=== PATIENT | male | born 1965 | race Caucasian/White ===

== ENCOUNTER 2023-06-27 17:17 | Emergency (ER) | payer OTHER, SELFPAY ==
[2023-06-27 17:18] VITALS: BMI 34.2
[2023-06-27 17:20] VITALS: BP 185/104
[2023-06-27 17:40] LABS: % Basophils 0.3 % (0-2); % Eosinophils 1.4 % (0-6); % Immature Granulocytes 0.3 % (0-0.5); % Lymphocytes 17.4 % (20.5-51.1); % Monocytes 8.5 % (1.7-9.3); % Neutrophils 72.1 % (42.2-75.2); Absolute Eosinophils 0.1 10^3/uL (0-0.7); Absolute Lymphocytes 1.5 10^3/uL (1.2-3.4); Absolute Monocytes 0.7 10^3/uL (0.1-0.6); Absolute Neutrophils 6.3 10^3/uL (1.4-6.5); Hematocrit 41.7 % (39.0-52.0); Hemoglobin 15.2 g/dL (13.0-18.0); Mean Corp Hgb Conc. 36.5 g/dL (33.0-37.0); Mean Corpuscular Hgb 30.5 pg (27.0-31.0); Mean Corpuscular Volume 83.6 fL (80.0-94.0); Mean Platelet Volume 9.5 fL (7.4-10.4); Nucleated Red Blood Cells % 0 % (-); Platelet Count 215 10^3/uL (130-400); Red Blood Cell Count 4.99 10^6/uL (4.70-6.10); White Blood Cell Count 8.7 10^3/uL (4.8-10.8)
[2023-06-27 17:51] LABS: INR 1.09; PT 14.2 Sec (11.4-14.6)
[2023-06-27 17:55] LABS: ALT (SGPT) 34 U/L (0-50); AST (SGOT) 32 U/L (17-59); Alkaline Phosphatase 120 U/L (38-126); Blood Urea Nitrogen 14 mg/dl (9-20); Calcium 9.4 mg/dl (8.4-10.2); Carbon Dioxide 23 mmol/L (22-30); Chloride 103 mmol/L (98-107); Glucose 134 mg/dl (70-99); Potassium 3.9 mmol/L (3.5-5.1); Sodium 132 mmol/L (135-145); Total Bilirubin 0.8 mg/dl (0.2-1.3); eGFR > 60.00
[2023-06-27 18:04] LABS: Troponin I < 0.012 ng/ml
[2023-06-27 20:00] VITALS: BP 135/92
--- NOTE | 2023-06-27 20:04 | ED.GENMED ---
History of Present Illness
General
Chief Complaint: Heart Rate Problem
Source: patient and records
Exam Limitations: none
Time Seen by Provider: 06/27/23 19:43
Nursing documentation reviewed up to this point in time: agreed with
Travel History
Have you had any contact with someone who has COVID-19?: No
Do you have any symptoms of coronavirus? Fever > 100 degrees, chills, cough, shortness of breath, sore throat, loss of taste or smell, muscle aches, or headache?: No
History of Present Illness
History of Present Illness:
58-year-old male CAD status post bypass surgery to follow with Dr. Lilly surgery Dr. Abdalla
Last week with swimming felt short of breath possibly passed out went to [facility] underwent cardiac catheterization which showed no blockage was discharged apparently had an arrhythmia prior to discharge was told to follow-up with his
hospitalist physician which she has not done yet, today had 2 episodes of fast heart rates with shortness of breath no syncope, no fevers, no history of DVT PE, no nausea or vomiting, states the symptoms are different than his prior angina requiring bypass
surgery 10 or 11 years ago
Past History
Past History
ED Past Medical History: HTN, Hypercholesterolemia, NIDDM and [place]
ED Past Surgical History: Cardiac and Other (Noncontributory)
Social History
Tobacco: Former smoker
Alcohol: None
Drug: None
Personal:
Living: with family
Employment: Employed
Family History
Family History: Other (Noncontributory); Negative CAD
Review of Systems
Review of Systems
All Other Systems: Not applicable
Constitutional: Denies fever or fatigue
Respiratory: Reports trouble breathing
Cardiac: Reports chest pain and palpitations
ABD/GI: Reports no symptoms
: Reports no symptoms
Musculoskeletal: Reports no symptoms
Phy Exam
Physical Exam
Physical Exam:
Physical Exam
General: no apparent distress, not acutely ill
Neck: No jaundice
Heart: Regular
Lungs: no acute respiratory distress. clear bilaterally
Abdomen: Nontender
Neuro: alert and oriented. no focal neurological deficits
Skin: no rash
Psychiatric: well kept. interactive and cooperative
Extremities: no edema. no calf tenderness.
Scores
Heart Score for Chest Pain Patients
STEMI patient?: No
History: Slightly or Non-Suspicious
ECG: Nonspecific Repolarization
Age: >45 - <65 years
Risk Factors: >/= 3 Risk Factors or History of CAD
Troponin: </= Normal Limit
Heart Score for Chest Pain Patients: 4
Heart Score Risk: 20.3% MACE over next 6 weeks
Course
Orders/Labs/Results
Orders:
Orders
06/27/23 17:19
Electrocardiogram (*1) Urgent
Reason for Study: Chest Pain
EKG- Treatment ONCE
06/27/23 17:33
Complete Blood Count/With Diff Urgent
Comprehensive Metabolic Panel Urgent
Magnesium Urgent
Comment: ADD ON
NT-proBNP Urgent
Comment: ADD ON
Protime/PTT Urgent
Troponin I Urgent
06/27/23 20:00
Add On- LAB Urgent
Tests Added?: magnesium, pBNP
CT Chest Pe Study Urgent
Comment:
Reason For Exam: cp
06/27/23 20:16
Troponin I Urgent
Abnormal Lab Results
06/27/23
17:33
Absolute Monos (auto) 0.7 H 10^3/uL
(0.1-0.6)
Lymphocytes % 17.4 L %
(20.5-51.1)
Sodium 132 L mmol/L
(135-145)
Glucose 134 H mg/dl
(70-99)
06/27/23 17:33
06/27/23 17:33
Vital Signs
Initial and Last Documented VS:
Initial Vital Signs
Temp Pulse Resp BP Pulse Ox
98.2 F 117 18 185/104 96
06/27/23 17:20 06/27/23 17:20 06/27/23 17:20 06/27/23 17:20 06/27/23 17:20
Last Documented Vital Signs
Temp Pulse Resp BP Pulse Ox
98.2 F 90 29 148/81 97
06/27/23 17:20 06/27/23 22:45 06/27/23 22:45 06/27/23 22:00 06/27/23 22:45
MDM/Problems Addressed
Differential Diagnosis Includes:
Arrhythmia PVCs conceivably PE, doubt ACS
MDM/Problems Addressed:
Palpitations chest pain shortness of
Chronic conditions affecting care: CAD
Acute Exacerbation and/or Progression of Chronic Illness: CAD
*Radiology
Radiology exam reviewed: radiology read reviewed
*Pulse Oximetry
Patient hypoxic: no
*EKG
Interpreted by ED Provider?: Yes
Interpretation: abnormal
Comparison EKG: no comparison EKG present
Heart Rate: 112
Rate: tachycardiac
Rhythm: sinus
Ischemia: non-specific ST changes
*Budget Specialist Interpretation
Rate: tachycardiac
Interpretation: abnormal
Heart Rate: 112
Rhythm: sinus
*Critical Care Note
Total Time (30-74mins, 75-104mins- exclusive of procedures): Not Applicable
Update Note
Update Note:
11 PM update labs noted troponin x [address] of the chest noted
Patient updated, he is feeling better, he has appointment already scheduled with nurse practitioner from his hospitalist physician on Saturday encouraged him to keep that appointment, he will limit his caffeine and take it easy through the weekend
ED Attending Note
-
Portions of this chart may have been created with voice recognition software.� Occasional wrong word or��sound alike� substitutions may have occurred due to the inherent limitations of voice recognition software.
Discharge Plan
Departure
Patient Disposition: Home (Routine Discharge)
Date of Disposition: 06/27/23
Time of Disposition: 23:17
Patient with high blood pressure during this ER visit?: No
Condition: Good
Covid-19: Not Applicable
Discharge Problem:
Heart palpitations
Instructions: Palpitations (DC)
Prescriptions:
No Action
aspirin 81 MG tablet,delayed release (DR/EC)
81 mg PO DAILY
pantoprazole 40 MG tablet,delayed release (DR/EC)
40 mg PO DAILY PRN (Reason: heart burn) Qty: 0 0RF
Rx Instructions:
Take daily for one month, then resume taking as needed
metformin 1,000 MG tablet
1,000 mg PO HS Qty: 30 2RF
Farxiga 10 MG tablet
10 mg PO HS Qty: 30 2RF
atorvastatin [Lipitor] 80 MG tablet
80 mg PO QPM Qty: 30 2RF
losartan-hydrochlorothiazide 50-12.5 mg Tablet
1 tab PO DAILY
nebivolol 10 mg Tablet
10 mg PO HS
oxycodone 5 mg tablet
5 - 10 mg PO Q4HPRN PRN (Reason: moderate to severe pain) Qty: 20 0RF
Referrals:
Theodore Cunningham DO [Family Provider] -
Interventions
Interventions:
*Risk Screen - Suicide Last Done: 06/27/23 17:20
*General Assessment Last Done: 06/27/23 17:20
*Neglect/Abuse Screening Last Done: 06/27/23 17:20
ED- Fall Risk Assessment Last Done: 06/27/23 21:58
*ED COVID-19 Vaccine History Last Done: 06/27/23 17:20
ED- Cardiac Assessment Last Done: 06/27/23 21:58
ED- Pulmonary Assessment Last Done: 06/27/23 21:58
Discharge Date and Time
Print Language: ROMANSH
[2023-06-27 20:46] LABS: NT-proBNP 38.3 pg/ml
[2023-06-27 21:00] VITALS: BP 137/87
[2023-06-27 22:00] VITALS: BP 148/81
== END 2023-06-27 23:54 | disposition home or self-care (01) ==
LOC: EMR 17:17
PROVIDERS: Emergency Medicine; EMERGENCY PHYSICIAN Emergency Medicine; FAMILY PHYSICIAN Family Medicine
DX: R00.2 Palpitations (principal); R06.02 Shortness of breath; I10 Essential (primary) hypertension; E78.00 Pure hypercholesterolemia, unspecified; E11.9 Type 2 diabetes mellitus without complications; I25.10 Atherosclerotic heart disease of native coronary artery without angina pectoris; Z79.84 Long term (current) use of oral hypoglycemic drugs; Z87.891 Personal history of nicotine dependence; Z95.1 Presence of aortocoronary bypass graft
CPT/HCPCS: 99284; 71275; 80053; 83735; 83880; 84484; 85025; 85610; 85730; 93005; Q9967

== ENCOUNTER 2024-05-24 18:38 | Emergency (ER) | payer OTHER, SELFPAY ==
[2024-05-24 18:56] VITALS: BP 138/97
[2024-05-24 19:23] LABS: % Basophils 0.2 % (0-2); % Eosinophils 1.9 % (0-6); % Immature Granulocytes 0.8 % (0-0.5); % Lymphocytes 14.2 % (20.5-51.1); % Monocytes 12.4 % (1.7-9.3); % Neutrophils 70.5 % (42.2-75.2); Absolute Eosinophils 0.2 10^3/uL (0-0.7); Absolute Immature Granulocytes 0.1 10^3/uL (0-0.05); Absolute Lymphocytes 1.4 10^3/uL (1.2-3.4); Absolute Monocytes 1.3 10^3/uL (0.1-0.6); Absolute Neutrophils 7.1 10^3/uL (1.4-6.5); Hematocrit 36.5 % (39.0-52.0); Hemoglobin 13.2 g/dL (13.0-18.0); Mean Corp Hgb Conc. 36.2 g/dL (33.0-37.0); Mean Corpuscular Volume 85.7 fL (80.0-94.0); Nucleated Red Blood Cells % 0 % (-); Platelet Count 180 10^3/uL (130-400); Red Blood Cell Count 4.26 10^6/uL (4.70-6.10); Red Cell Dist. Width 13.2 % (11.5-14.5); White Blood Cell Count 10.1 10^3/uL (4.8-10.8)
[2024-05-24 19:33] LABS: INR 1.04; PT 13.9 Sec (11.4-14.6)
[2024-05-24 19:41] LABS: ALT (SGPT) 98 U/L (0-50); AST (SGOT) 59 U/L (17-59); Albumin 3.8 g/dl (3.5-5.0); Alkaline Phosphatase 112 U/L (38-126); Blood Urea Nitrogen 16 mg/dl (9-20); Calcium 9.1 mg/dl (8.4-10.2); Carbon Dioxide 27 mmol/L (22-30); Chloride 101 mmol/L (98-107); Glucose 108 mg/dl (70-99); Potassium 3.9 mmol/L (3.5-5.1); Sodium 136 mmol/L (135-145); Total Protein 6.5 g/dl (6.3-8.2); eGFR > 60.00
--- NOTE | 2024-05-24 20:36 | ED.GENMED ---
History of Present Illness
General
Chief Complaint: DVT/Possible Blood Clot
Source: patient and spouse ( at bedside)
Exam Limitations: none
Time Seen by Provider: 05/24/24 20:14
Nursing documentation reviewed up to this point in time: agreed with
History of Present Illness
History of Present Illness:
Patient is a 59-year-old male with history of CAD, hypertension, hyperlipidemia and left total knee replacement on 05/18/2024 presenting with worsening pain, swelling, and ecchymosis of left lower leg. Patient states he had physical therapy on
Saturday and noticed worsening bruising and pain Saturday morning which he did not initially attributed to the recent PT session. However�swelling and pain persisted and he is having some difficulty ambulating. He contacted orthopedic surgeon today
who recommended evaluation the emergency department to rule out blood clot.
Patient denies any numbness/tingling in left lower extremity. Patient denies any chest pain or shortness of breath. Patient has no history of clots.
He is currently taking a baby aspirin postoperatively
Past History
Past History
ED Past Medical History: HTN, Hypercholesterolemia, NIDDM and [place]
ED Past Surgical History: Cardiac and Other (Noncontributory)
Social History
Tobacco: Former smoker
Alcohol: None
Drug: None
Personal:
Living: with family
Employment: Employed
Family History
Family History: Other (Noncontributory); Negative CAD
Review of Systems
Review of Systems
Allergies reviewed?: Yes
All Other Systems: ROS reviewed and negative except as documented in HPI and ROS
Phy Exam
Physical Exam
Physical Exam:
Vitals: Hypertensive, otherwise vital stable. Afebrile
General: Patient is well appearing, no acute distress. Nontoxic appearing
Skin: Warm and dry, no rashes or lesions
Head: Normocephalic, atraumatic
Eyes: Sclera nonicteric. EOMs intact. No nystagmus.
Throat: Protecting airway
Neck: Normal ROM, no cervical spine tenderness, no meningismus
Cardiac: Regular rate and rhythm, no murmurs. 2+ palpable radial pulses bilaterally
Pulm: Normal respiratory effort, no wheezes, rales, rhonchi heard on exam. Not tachypneic or hypoxic.
Abdomen: No abdominal tenderness.
Extremities: 2+ pitting edema of left lower extremity from foot to mid calf with overlying erythema and warmth. Tenderness noted with palpation of left calf. Bandage over surgical incision of left knee without any evidence of surrounding erythema
or drainage. Ecchymoses of left thigh. Palpable left DP pulse with normal sensation in left lower extremity. Cap refill WNL. Patient has decent range of motion in left knee.
Neuro: AAOx3. Grossly intact.
Psychiatric: Normal affect.
Course
Orders/Labs/Results
Orders:
Orders
05/24/24 19:01
Periph Venous Lwr Ext Left US [US Periph Venous LOWER Ext LT] Urgent
Comment:
Reason For Exam: pain swelling
05/24/24 19:05
Complete Blood Count/With Diff Urgent
Comprehensive Metabolic Panel Urgent
PT/INR [Prothrombin Time] Urgent
05/24/24 20:58
Apixaban [Eliquis] 10 mg PO NOW STA
Abnormal Lab Results
05/24/24
19:05
RBC 4.26 L 10^6/uL
(4.70-6.10)
Hct 36.5 L %
(39.0-52.0)
Abs Immat Gran (auto) 0.1 H 10^3/uL
(0-0.05)
Absolute Neuts (auto) 7.1 H 10^3/uL
(1.4-6.5)
Absolute Monos (auto) 1.3 H 10^3/uL
(0.1-0.6)
Immature Gran % 0.8 H %
(0-0.5)
Lymphocytes % 14.2 L %
(20.5-51.1)
Monocytes % 12.4 H %
(1.7-9.3)
Glucose 108 H mg/dl
(70-99)
Total Bilirubin 2.0 H mg/dl
(0.2-1.3)
ALT 98 H U/L
(0-50)
05/24/24 19:05
05/24/24 19:05
Vital Signs
Pulse: 85
Initial and Last Documented VS:
Initial Vital Signs
Temp Pulse Resp BP Pulse Ox
97.6 F 107 18 138/97 99
05/24/24 18:56 05/24/24 18:56 05/24/24 18:56 05/24/24 18:56 05/24/24 18:56
Last Documented Vital Signs
Temp Pulse Resp BP Pulse Ox
97.6 F 89 16 169/93 97
05/24/24 18:56 05/24/24 21:27 05/24/24 20:43 05/24/24 20:46 05/24/24 21:27
MDM/Problems Addressed
Differential Diagnosis Includes:
Not limited to: DVT, cellulitis, postoperative swelling, dependent edema, etc.
MDM/Problems Addressed:
59-year-old male with recent left total knee replacement presenting with worsening swelling and ecchymoses of left calf with concern of DVT. No numbness/tingling in affected family. No chest pain, shortness of breath, or syncopal episodes.
Patient very mildly tachycardic on arrival, otherwise he is stable vital signs. He is not hypoxic or tachypneic. Physical exam as above. An ultrasound of the left lower extremity was obtained in triage which did show an occlusive DVT of the left
peroneal vein.
Discussed findings with patient. Patient's mild tachycardia on arrival to ED noted although he has no other signs or symptoms of pulmonary embolism. He was placed on a monitor to monitor heart rate which returned to normal range, 80s while was not
in his room. Clinically back pulmonary embolism. Will initiate Eliquis discontinue aspirin first dose was pharmacy, as well as a printed prescription. He will follow-up with Ortho and primary care. Hematology if needed. Very strict return
precautions discussed. Patient and patient's verbalized understanding and are comfortable with plan.
Chronic conditions affecting care:
Hypertension, recent left knee replacement
Acute Exacerbation and/or Progression of Chronic Illness:
Acutely hypertensive
*Radiology
Radiology exam reviewed: radiology read reviewed (DVT of left peroneal vein)
*Pulse Oximetry
Patient hypoxic: no
*EKG
Interpreted by ED Provider?: NA
*Pharmaceutical Detailer Interpretation
Rate: Pharmaceutical Detailer- N/A
*Critical Care Note
Total Time (30-74mins, 75-104mins- exclusive of procedures): Not Applicable
ED Attending Note
-
Portions of this chart may have been created with voice recognition software.� Occasional wrong word or��sound alike� substitutions may have occurred due to the inherent limitations of voice recognition software.
Discharge Plan
Departure
Patient Disposition: Home (Routine Discharge)
Date of Disposition: 05/24/24
Time of Disposition: 21:18
Patient with high blood pressure during this ER visit?: Yes
Condition: Good
Covid-19: Not Applicable
Discharge Problem:
Acute deep vein thrombosis (DVT) of right lower extremity
Instructions: Deep Vein Thrombosis (Blood Clots in the Legs) (DC), BLOOD PRESSURE
Prescriptions:
New
Eliquis 5 mg tablet
See Rx Instructions .ROUTE .COMPLEX Qty: 74 0RF
Rx Instructions:
Take 2 tablets (10mg) Po BID x 1 week, then 1 tablet (5mg) BID
No Action
pantoprazole 40 MG tablet,delayed release (DR/EC)
40 mg PO DAILY PRN (Reason: heart burn) Qty: 0 0RF
aspirin 325 mg Tablet
325 mg PO DAILY
losartan 25 mg Tablet
25 mg PO DAILY
Praluent Pen 75 mg/mL Pen Injector
75 mg SC Q2W
Mounjaro 5 mg/0.5 mL Pen Injector
5 mg SC WEEKLY
Referrals:
Doug Carroll DO [Active] - As needed
Theodore Cunningham DO [Family Provider] - Follow up in 2-3 days
Shiva Moura MD [Active] - Follow up in 2-3 days
Activity Restrictions/Additional Instructions:
Return to the emergency department any high fevers, chest pain, shortness of breath, lightheadedness/dizziness or fainting, significant worsening swelling or pain in left lower extremity, or any other concerns
- As discussed�your ultrasound did show with a DVT of your left lower extremity. You were given the initial dose of Eliquis in the emergency department. I have sent a month supply of this medication although you will need to follow-up with your
primary care or hematology for further continuation of Eliquis as needed.
- If you sustain any trauma or any head injury please return to the emergency department as taking Eliquis increases your chance of bleeding.
- You should discontinue aspirin since you are now send Eliquis.
- Follow-up with primary care and orthopedics for further evaluation/management and to ensure that her symptoms are proving. You might need repeat ultrasound.
Monitor your symptoms closely and return to the emergency department with any acute worsening/new symptoms or any other concerns
Interventions
Interventions:
*Risk Screen - Suicide Last Done: 05/24/24 18:56
*General Assessment Last Done: 05/24/24 18:56
*Neglect/Abuse Screening Last Done: 05/24/24 20:38
*ED- Fall Risk Assessment Last Done: 05/24/24 18:56
*ED COVID-19 Vaccine History Last Done: 05/24/24 18:56
*Nursing Disposition Last Done: 05/24/24 21:52
ED- Cardiac Assessment Last Done: 05/24/24 20:57
ED- Pulmonary Assessment Last Done: 05/24/24 20:57
ED-Peripheral Vascular Assessment Last Done: 05/24/24 20:57
ED-Skin Assessment Last Done: 05/24/24 20:57
Discharge Date and Time
Discharge Date/Time: 05/24/24 21:52
Print Language: BURKINAN
[2024-05-24 20:38] VITALS: BMI 33.2
[2024-05-24 20:43] VITALS: BP 163/89
[2024-05-24 20:46] VITALS: BP 169/93
--- NOTE | 2024-05-24 20:49 | EDRN ---
Pt got up yesterday morning and had pain, redness, swelling L leg. Pt had L knee replacement surgery 05/18/24. Pt had PT on Saturday and says it was 'pretty severe.' No cp, sob, n/v, fever/chills/cough.
[2024-05-24] MEDS: ELIQUIS 10 MG PO (21:05)
== END 2024-05-24 21:52 | disposition home or self-care (01) ==
LOC: EMR 18:38
PROVIDERS: EMERGENCY PHYSICIAN Emergency Medicine; FAMILY PHYSICIAN Family Medicine
DX: I82.452 Acute embolism and thrombosis of left peroneal vein (principal); R26.2 Difficulty in walking, not elsewhere classified; M79.662 Pain in left lower leg; R22.42 Localized swelling, mass and lump, left lower limb; I25.10 Atherosclerotic heart disease of native coronary artery without angina pectoris; I10 Essential (primary) hypertension; E78.00 Pure hypercholesterolemia, unspecified; E11.9 Type 2 diabetes mellitus without complications; K21.9 Gastro-esophageal reflux disease without esophagitis; G47.30 Sleep apnea, unspecified; I25.2 Old myocardial infarction; Z98.890 Other specified postprocedural states; Z96.652 Presence of left artificial knee joint; Z95.1 Presence of aortocoronary bypass graft; Z95.5 Presence of coronary angioplasty implant and graft; Z87.891 Personal history of nicotine dependence; Z79.82 Long term (current) use of aspirin; Z79.84 Long term (current) use of oral hypoglycemic drugs; Z88.8 Allergy status to other drugs, medicaments and biological substances; Z91.018 Allergy to other foods
CPT/HCPCS: 99284; 80053; 85025; 85610; 93971

== ENCOUNTER → 2024-05-27 15:26 | Outpatient (REF) | payer OTHER, SELFPAY | LOC: RAD 15:26 | PROVIDERS: ATTENDING PHYSICIAN Family Medicine | DX: I82.452 Acute embolism and thrombosis of left peroneal vein (principal) | CPT/HCPCS: 71275; Q9967 ==

== ENCOUNTER → 2024-08-18 10:20 | Outpatient (REF) | payer OTHER, SELFPAY | LOC: RAD 10:20 | PROVIDERS: ATTENDING PHYSICIAN Internal Medicine Hematology & Oncology; FAMILY PHYSICIAN Family Medicine | DX: I82.402 Acute embolism and thrombosis of unspecified deep veins of left lower extremity (principal) | CPT/HCPCS: 93971 ==

== ENCOUNTER → 2024-10-06 13:25 | Outpatient (REF) | payer OTHER, SELFPAY | LOC: RAD 13:25 | PROVIDERS: ATTENDING PHYSICIAN Student in an Organized Health Care Education/Training Program; FAMILY PHYSICIAN Family Medicine | DX: I87.2 Venous insufficiency (chronic) (peripheral) (principal) | CPT/HCPCS: 93970 ==

== ENCOUNTER → 2024-10-30 12:51 | Outpatient (REF) | payer OTHER, SELFPAY | LOC: RAD 12:51 | PROVIDERS: ATTENDING PHYSICIAN Family Medicine | DX: M25.571 Pain in right ankle and joints of right foot (principal) | CPT/HCPCS: 93971 ==

== ENCOUNTER → 2024-11-02 10:21 | Outpatient (REF) | payer OTHER, SELFPAY ==
--- NOTE | 2024-11-02 11:05 | CARDSERVLU ---
Echocardiogram with Lumason completed after protocol screening completed. Allergies verified.
Patent IV site: Rt hand
IV site flushed with 0.9% NaCl pre and post administration.
Diluted bolus method utilized to enhance visualization of ventricular smiley.
Total volume given: _2.0___ mL
Patient tolerated all procedures well without complications.
#22 naima placed Rt hand. INT d/c'd. pressure held. No bleeding noted.
== END ==
LOC: RCS 10:21
PROVIDERS: ATTENDING PHYSICIAN Student in an Organized Health Care Education/Training Program; FAMILY PHYSICIAN Family Medicine
DX: I25.10 Atherosclerotic heart disease of native coronary artery without angina pectoris (principal)
CPT/HCPCS: 93306; Q9950

== ENCOUNTER → 2024-12-02 09:41 | Outpatient (REF) | payer OTHER, SELFPAY | LOC: HWEVLT 09:41 | PROVIDERS: ATTENDING PHYSICIAN Radiology Vascular & Interventional Radiology | DX: I83.892 Varicose veins of left lower extremity with other complications (principal) | CPT/HCPCS: 36478; C1769 ==

== ENCOUNTER → 2024-12-17 11:39 | Outpatient (REF) | payer OTHER, SELFPAY | LOC: HWEVLT 11:39 | PROVIDERS: ATTENDING PHYSICIAN Radiology Diagnostic Radiology | DX: I83.892 Varicose veins of left lower extremity with other complications (principal) | CPT/HCPCS: 93971 ==

== ENCOUNTER 2024-12-23 11:02 | Emergency (ER) | payer OTHER, SELFPAY ==
[2024-12-23 11:04] VITALS: BP 193/116
--- NOTE | 2024-12-23 11:34 | ED.GENMED ---
History of Present Illness
General
Chief Complaint: Heart Rate Problem
Time Seen by Provider: 12/23/24 11:19
History of Present Illness
History of Present Illness:
59-year-old male with history of CAD status post CABG, hypertension, hyperlipidemia, GERD, [id number] diabetes, and obesity presents to the emergency department for evaluation of lightheadedness and heart palpitations that began while
attempting to exercise in the gym this morning. He states that several weeks ago he had a vein ablation of the lower extremities and was advised to increase physical activity. He also notes that he had frequent palpitations approximately 2 weeks
ago after upping his dose of tirzepatide from 2.5 to 5 mg but his past 2 dosages have resumed his 2.5 mg dosage. Denies any associated chest pain or shortness of breath with this. No anginal equivalent symptoms. No recent illnesses or fever or
chills.
Past History
Past History
ED Past Medical History: HTN, Hypercholesterolemia, NIDDM and [place]
ED Past Surgical History: Cardiac and Other (Noncontributory)
Social History
Tobacco: Former smoker
Alcohol: None
Drug: None
Personal:
Living: with family
Employment: Employed
Family History
Family History: Other (Noncontributory); Negative CAD
Review of Systems
Review of Systems
Allergies reviewed?: Yes
All Other Systems: ROS reviewed and negative except as documented in HPI and ROS
Phy Exam
Physical Exam
Physical Exam:
GEN: Well appearing, NAD, WDWN
HEENT: Oral mucosa moist, no scleral icterus
Cardiac: Regular rate and rhythm, no murmurs, occasional extrasystoles
Lung: No respiratory distress, no tachypnea, lungs clear to auscultation bilaterally
MSK: No gross deformity or injuries
Skin: Good color, no pallor or jaundice, no rashes
Neuro: AO x3, moves all extremities freely
Psych: Calm, cooperative
Course
Orders/Labs/Results
Orders:
Orders
12/23/24 11:08
EKG [Electrocardiogram (*1)] Urgent
Reason for Study: Tachycardia
EKG- Treatment ONCE
12/23/24 11:57
Complete Blood Count/With Diff Urgent
Comprehensive Metabolic Panel Urgent
Magnesium Urgent
TSH Reflex To Free T4 Urgent
Abnormal Lab Results
12/23/24
11:57
RBC 4.69 L 10^6/uL
(4.70-6.10)
Absolute Lymphs (auto) 1.0 L 10^3/uL
(1.2-3.4)
Glucose 120 H mg/dl
(70-99)
12/23/24 11:57
12/23/24 11:57
Vital Signs
Initial and Last Documented VS:
Initial Vital Signs
Temp Pulse Resp BP Pulse Ox
97.7 F 96 18 193/116 99
12/23/24 11:04 12/23/24 11:04 12/23/24 11:04 12/23/24 11:04 12/23/24 11:04
Last Documented Vital Signs
Temp Pulse Resp BP Pulse Ox
97.7 F 78 18 193/116 100
12/23/24 11:04 12/23/24 12:45 12/23/24 12:45 12/23/24 11:04 12/23/24 12:45
MDM/Problems Addressed
MDM/Problems Addressed:
Patient without evidence of dysrhythmia on telemetry monitoring however several PACs and PVCs were noted, this did not correlate with symptoms however. Given his extensive cardiac history we will refer him to his manager for Holter monitor
Comment
Comment:
EKG independently interpreted by me shows normal sinus rhythm at a rate of [address] changes, comparable to prior EKG from June 2023
*Pulse Oximetry
SaO2: 99
Oxygen Mode of Delivery: Room air
Patient hypoxic: no
*Critical Care Note
Total Time (30-74mins, 75-104mins- exclusive of procedures): Not Applicable
ED Attending Note
-
Portions of this chart may have been created with voice recognition software.� Occasional wrong word or��sound alike� substitutions may have occurred due to the inherent limitations of voice recognition software.
Discharge Plan
Departure
Patient Disposition: Home (Routine Discharge)
Date of Disposition: 12/23/24
Time of Disposition: 12:49
Patient with high blood pressure during this ER visit?: No
Discharge Problem:
Heart palpitations
Instructions: Palpitations (DC)
Prescriptions:
No Action
pantoprazole 40 MG tablet,delayed release (DR/EC)
40 mg PO DAILY PRN (Reason: heart burn) Qty: 0 0RF
aspirin 325 mg Tablet
325 mg PO DAILY
losartan 25 mg Tablet
25 mg PO DAILY
Praluent Pen 75 mg/mL Pen Injector
75 mg SC Q2W
Mounjaro 5 mg/0.5 mL Pen Injector
5 mg SC WEEKLY
Eliquis 5 mg tablet
See Rx Instructions .ROUTE .COMPLEX Qty: 74 0RF
Rx Instructions:
Take 2 tablets (10mg) Po BID x 1 week, then 1 tablet (5mg) BID
Referrals:
Harpal Cole MD [Family Provider, Cardiology]
Activity Restrictions/Additional Instructions:
Your cardiology office will call to arrange the Holter monitor
Interventions
Interventions:
*Risk Screen - Suicide Last Done: 12/23/24 11:04
*General Assessment Last Done: 12/23/24 11:04
*Neglect/Abuse Screening Last Done: 12/23/24 11:04
*ED COVID-19 Vaccine History Last Done: 12/23/24 11:04
*ED Influenza Vaccine History Last Done: 12/23/24 11:04
*Nursing Disposition Last Done: 12/23/24 13:04
ED- Cardiac Assessment Last Done: 12/23/24 11:18
ED- Pulmonary Assessment Last Done: 12/23/24 11:18
Discharge Date and Time
Discharge Date/Time: 12/23/24 13:32
Print Language: KHMER
[2024-12-23 12:22] LABS: Hematocrit 40.2 % (39.0-52.0); Hemoglobin 13.9 g/dL (13.0-18.0); Mean Corp Hgb Conc. 34.6 g/dL (33.0-37.0); Mean Corpuscular Volume 85.7 fL (80.0-94.0); Nucleated Red Blood Cells % 0 % (-); Platelet Count 165 10^3/uL (130-400); Red Cell Dist. Width 13.3 % (11.5-14.5)
[2024-12-23 12:28] LABS: ALT (SGPT) 25 U/L (0-50); AST (SGOT) 30 U/L (17-59); Albumin 4.1 g/dl (3.5-5.0); Alkaline Phosphatase 97 U/L (38-126); Blood Urea Nitrogen 15 mg/dl (9-20); Calcium 8.9 mg/dl (8.4-10.2); Carbon Dioxide 29 mmol/L (22-30); Chloride 102 mmol/L (98-107); Glucose 120 mg/dl (70-99); Magnesium 2.0 mg/dl (1.6-2.3); Potassium 4.2 mmol/L (3.5-5.1); Sodium 137 mmol/L (135-145); Total Protein 6.7 g/dl (6.3-8.2); eGFR > 60.00
== END 2024-12-23 13:32 | disposition home or self-care (01) ==
LOC: EMR 11:02
PROVIDERS: Physician Assistant; EMERGENCY PHYSICIAN Emergency Medicine; FAMILY PHYSICIAN Student in an Organized Health Care Education/Training Program
DX: R00.2 Palpitations (principal); I49.3 Ventricular premature depolarization; I49.1 Atrial premature depolarization; E11.9 Type 2 diabetes mellitus without complications; I25.810 Atherosclerosis of coronary artery bypass graft(s) without angina pectoris; I10 Essential (primary) hypertension; E78.00 Pure hypercholesterolemia, unspecified; I25.2 Old myocardial infarction; K21.9 Gastro-esophageal reflux disease without esophagitis; Z79.85 Long-term (current) use of injectable non-insulin antidiabetic drugs; Z95.1 Presence of aortocoronary bypass graft; Z87.891 Personal history of nicotine dependence
CPT/HCPCS: 99284; 80053; 83735; 84443; 85025; 93005